=== PATIENT | male | born 1970 | race Caucasian/White ===

== ENCOUNTER 2017-04-11 22:33 | Emergency (ER) | payer OTHER | END 2017-04-12 00:15 | disposition home or self-care (01) | LOC: ER 22:33 | DX: R07.2 Precordial pain (principal); R03.0 Elevated blood-pressure reading, without diagnosis of hypertension; R10.31 Right lower quadrant pain; R11.2 Nausea with vomiting, unspecified; E78.5 Hyperlipidemia, unspecified; F17.220 Nicotine dependence, chewing tobacco, uncomplicated; Z88.6 Allergy status to analgesic agent | CPT/HCPCS: 36415 ==